=== PATIENT | female | born 1965 | race Asian ===

== ENCOUNTER → 2017-05-30 | Outpatient (CLI) | payer MEDICAID | END | disposition home or self-care (01) | LOC: CFH 10:10 | PROVIDERS: ATTEND Family Medicine | DX: M51.16 Intervertebral disc disorders with radiculopathy, lumbar region (principal); M50.123 Cervical disc disorder at C6-C7 level with radiculopathy; M41.86 Other forms of scoliosis, lumbar region; G89.29 Other chronic pain | CPT/HCPCS: 72141; 72148 ==

== ENCOUNTER → 2020-08-13 | Outpatient (CLI) | payer MEDICAID | END | disposition home or self-care (01) | LOC: CFH 12:21 | PROVIDERS: ATTEND Family Medicine | DX: Z12.31 Encounter for screening mammogram for malignant neoplasm of breast (principal) | CPT/HCPCS: 77063; 77067 ==